=== PATIENT | female | born 1940 | race Caucasian/White ===

== ENCOUNTER 2018-12-08 09:09 | Emergency (ER) | payer OTHER, MEDICAID ==
[~2018-12-08] VITALS: Ht 154.9 cm; Wt 80.0 kg
[~2018-12-08 09:09] MED LIST: DOCU-281 PO; LEVO50 PO; LISI-662 PO; METF-960 PO; ROSU20TA23 PO
[2018-12-08] MEDS ORDERED: LEVO75 PO (09:15)
[2018-12-08] MEDS: MORPHINE SULFATE 4 MG/ML SYRINGE IVP ONE ×2 (09:49→10:13)
[2018-12-08 09:58] LABS: HEMATOCRIT 39.1 % (36-46); MEAN CORPUSCULAR HEMOGLOBIN 32.9 pg (26.0-34.0); MEAN CORPUSCULAR HGB CONC 33.3 G/dL (31.0-37.0); MEAN CORPUSCULAR VOLUME 99 fL (80-100); PLATELET COUNT (AUTO) 191 K/uL (150-450); RED BLOOD CELL COUNT(AUTO) 3.96 MIL/uL (4.00-5.20); RED CELL DISTRIBUTION WIDTH 13.2 % (11.5-14.5)
[2018-12-08 10:07] LABS: CALCIUM, TOTAL 9.5 mg/dL (8.8-10.5); CREATININE 1.06 mg/dL (0.60-1.30)
[2018-12-08 10:15] LABS: ALBUMIN 3.7 g/dL (3.4-5.0); TOTAL PROTEIN, SERUM 6.7 g/dL (6.4-8.2)
[2018-12-08 10:16] LABS: APPEARANCE,URINE CLEAR (CLEAR); BILIRUBIN,URINE NEGATIVE (NEGATIVE); GLUCOSE, URINE (UA) NEGATIVE (NEGATIVE); KETONES,URINE NEGATIVE (NEGATIVE); LEUKOCYTE ESTERASE ,URINE NEGATIVE (NEGATIVE); NITRATE,URINE NEGATIVE (NEGATIVE); OCCULT BLOOD,URINE NEGATIVE (NEGATIVE); PROTEIN,URINE NEGATIVE (NEGATIVE); UROBILINOGEN,URINE 0.2 mg/dL (<=1.0)
[2018-12-08 10:18] LABS: BAND NEUTROPHILS % (MANUAL) 16 % (0-5); LYMPHOCYTES % (MANUAL) 18 % (22-44); REACTIVE LYMPHOCYTES 1 % (0-0); SEGMENTED NEUTROPHILS % 65 % (40-70)
[2018-12-08 10:20] LABS: BACTERIA,URINE None Seen /HPF (None Seen); RBC,URINE None Seen /HPF (0-2); SQUAMOUS EPITHELIAL CELL,UR Few /LPF (None Seen); WBC,URINE None Seen /HPF (0-5)
[2018-12-08] MEDS ORDERED: CefTRIAXone 1 GM/DEXTROSE 50 ML IV ONE (10:30)
[2018-12-08] MEDS ORDERED: SODIUM CHLORIDE 0.9% 1,000 ML IV ONE (10:30)
[2018-12-08 11:12] LABS: LACTIC ACID 2.3 mmol/L (0.4-2.0)
[2018-12-08] MEDS ORDERED: IOVERSOL 350 MG/ML 100 ML VIAL ONE (11:12)
[2018-12-08] MEDS ORDERED: SODIUM CHLORIDE 0.9% 100 ML ONE (11:12)
[2018-12-08] MEDS ORDERED: SODIUM CHLORIDE 0.9% 1,400 ML IV ONE (11:15)
[2018-12-08] MEDS ORDERED: ACETAMINOPHEN 325 MG TABLET PO ONE (14:00)
[2018-12-08 14:03] VITALS: BP 128/68
== END 2018-12-08 14:39 | disposition home or self-care (01) ==
LOC: EMS 09:10
DX: D72.825 Bandemia (principal); E27.9 Disorder of adrenal gland, unspecified; E11.9 Type 2 diabetes mellitus without complications; K21.9 Gastro-esophageal reflux disease without esophagitis; E78.00 Pure hypercholesterolemia, unspecified; I10 Essential (primary) hypertension; Z90.89 Acquired absence of other organs; Z79.899 Other long term (current) drug therapy; Z79.84 Long term (current) use of oral hypoglycemic drugs
CPT/HCPCS: 36415; 74177; 80053; 81001; 83605; 83690; 84484; 85025; 87040; 93005; 96365; 96366; 96375; 99284; J0696; J2270; J7030; J7050; Q9967